=== PATIENT | male | born 1980 | race Caucasian/White ===

== ENCOUNTER 2016-05-20 16:31 | Emergency (ER) | payer SELFPAY ==
[~2016-05-20] VITALS: Ht 182.9 cm; Wt 116.2 kg
[~2016-05-20 16:31] MED LIST: AMOXICILLIN500 M1 PO; BACTRIM,SEPT1 TABLET PO; BACTROBAN OINTM22 GM TP; BENADRYL ITCH28.3 GM TP; KEFLEX500 MG PO; LASIX20 MG PO; NOHOMEMEDS; NORCO 5/3251 TABLET PO; ULTRAM50 MG PO
[2016-05-20 18:33] VITALS: BP 135/80
== END 2016-05-20 18:34 | disposition home or self-care (01) ==
LOC: EME 16:31
DX: S60.221A Contusion of right hand, initial encounter (principal); W22.09XA Striking against other stationary object, initial encounter
CPT/HCPCS: 73130; 99281; 99283